=== PATIENT | female | born 1950 | race Caucasian/White ===

== ENCOUNTER 2019-03-23 15:24 | Inpatient (IN) | payer MEDICARE, BC ==
[~2019-03-23] VITALS: Ht 160 cm; Wt 53.5 kg
[~2019-03-23 15:24] MED LIST: CRESTOR PO; HYDR-3326 PO; LUNESTA PO; MEGE400O PO; PANT40TA2 PO; QUET25TA3 PO
[2019-03-23] MEDS ORDERED: MODA100T14 PO (15:54)
[2019-03-23] MEDS ORDERED: BUPR150T5 PO (15:54)
[2019-03-23] MEDS ORDERED: VITAMIN D3 (15:54)
[2019-03-23] MEDS ORDERED: DONE10TA44 PO (15:54)
[2019-03-23] MEDS ORDERED: BELSOMRA PO (15:54)
[2019-03-23] MEDS ORDERED: BUSPAR (15:54)
[2019-03-23] MEDS ORDERED: ROSU20TA2 PO (15:54)
[2019-03-23] MEDS ORDERED: LORA-259 PO (15:54)
[2019-03-23] MEDS ORDERED: LEVO50TA PO (15:54)
[2019-03-23 16:25] LABS: BASOPHILS # (AUTO) 0.1 K/uL (0.0-8.0); BASOPHILS % (AUTO) 0.6 % (0.0-2.0); EOSINOPHILS # (AUTO) 0.1 K/uL (0.0-0.7); EOSINOPHILS % (AUTO) 1.1 % (0.0-7.0); HEMATOCRIT 37.5 % (31.2-41.9); HEMOGLOBIN 12.5 g/dL (10.9-14.3); LYMPHOCYTES # (AUTO) 1.8 K/uL (20.0-40.0); LYMPHOCYTES % (AUTO) 17.8 % (20.5-51.5); MEAN CORPUSCULAR HEMOGLOBIN 29.7 uug (24.7-32.8); MEAN CORPUSCULAR HGB CONC 33 g/dL (32.3-35.6); MEAN CORPUSCULAR VOLUME 88.9 fL (75.5-95.3); MONOCYTES # (AUTO) 0.7 K/uL (2.0-10.0); MONOCYTES % (AUTO) 6.3 % (0.0-11.0); NEUTROPHILS # (AUTO) 7.7 K/uL (1.8-8.9); NEUTROPHILS % (AUTO) 74.2 % (38.5-71.5); PLATELET COUNT (AUTO) 329 K/uL (179-408); RED BLOOD CELL COUNT(AUTO) 4.22 MIL/uL (3.63-4.92); WHITE BLOOD COUNT (AUTO) 10.4 K/uL (3.8-11.8)
[2019-03-23 16:35] LABS: CREATININE 0.9 mg/dL (0.6-1.3); POTASSIUM 3.6 mmol/L (3.5-5.1)
[2019-03-23 16:48] LABS: BILIRUBIN,DIRECT 0.1 mg/dL (0.0-0.2); BILIRUBIN,TOTAL 0.3 mg/dL (0.2-1.0); TOTAL PROTEIN, SERUM 6.9 g/dL (6.4-8.2)
[2019-03-23 18:56] VITALS: BP 142/89
[2019-03-23] MEDS ORDERED: LORAZEPAM 1 MG TABLET PO SCH (19:30)
[2019-03-23 20:16] VITALS: BP 128/40
[2019-03-23] MEDS ORDERED: MISCELLANEOUS MED XX PRN (22:30)
[2019-03-24 00:18] VITALS: BP 102/43
[2019-03-24 05:15] VITALS: BP 104/46
[2019-03-24] MEDS ORDERED: DONEPEZIL 10 MG TABLET PO SCH (09:00)
[2019-03-24] MEDS ORDERED: busPIRone 10 MG TABLET PO SCH (09:00)
[2019-03-24] MEDS ORDERED: buPROPion XL 150 MG TAB.SR.24H PO SCH (09:00)
[2019-03-24] MEDS ORDERED: buPROPion SR 150 MG TABLET.SA PO SCH (09:00)
[2019-03-24] MEDS ORDERED: LEVOTHYROXINE SODIUM 50 MCG TABLET PO SCH (09:00)
[2019-03-24 11:01] VITALS: BP 127/50
[2019-03-24] MEDS ORDERED: ACETAMINOPHEN 325 MG TABLET PO PRN (11:45)
[2019-03-24] MEDS ORDERED: MORPHINE SULFATE 2 MG/1 ML DISP.SYRIN IV PRN (11:45)
[2019-03-24] MEDS ORDERED: LORAZEPAM 1 MG TABLET PO PRN (12:06)
[2019-03-24 12:08] LABS: BASOPHILS % (AUTO) 0.4 % (0.0-2.0); EOSINOPHILS # (AUTO) 0.1 K/uL (0.0-0.7); EOSINOPHILS % (AUTO) 1.2 % (0.0-7.0); HEMATOCRIT 33.8 % (31.2-41.9); HEMOGLOBIN 11.4 g/dL (10.9-14.3); LYMPHOCYTES # (AUTO) 1.3 K/uL (20.0-40.0); LYMPHOCYTES % (AUTO) 14.7 % (20.5-51.5); MEAN CORPUSCULAR HEMOGLOBIN 30.1 uug (24.7-32.8); MEAN CORPUSCULAR HGB CONC 34 g/dL (32.3-35.6); MEAN CORPUSCULAR VOLUME 89.1 fL (75.5-95.3); MONOCYTES # (AUTO) 0.6 K/uL (2.0-10.0); MONOCYTES % (AUTO) 7.2 % (0.0-11.0); NEUTROPHILS # (AUTO) 6.5 K/uL (1.8-8.9); NEUTROPHILS % (AUTO) 76.5 % (38.5-71.5); PLATELET COUNT (AUTO) 279 K/uL (179-408); WHITE BLOOD COUNT (AUTO) 8.5 K/uL (3.8-11.8)
[2019-03-24 12:17] LABS: BILIRUBIN,TOTAL 0.3 mg/dL (0.2-1.0); PHOSPHOROUS 3.7 mg/dL (2.5-4.9); POTASSIUM 3.6 mmol/L (3.5-5.1)
[2019-03-24] MEDS ORDERED: DOCUSATE SODIUM 100 MG CAPSULE PO SCH (21:00)
[2019-03-25] MEDS ORDERED: PANTOPRAZOLE SODIUM 40 MG TABLET.DR PO SCH (07:00)
== END 2019-03-24 15:00 | disposition home or self-care (01) | DRG 880 ==
LOC: ER 15:27 → TELE3 18:06 → MEDSURG3 03-24 12:18
PROVIDERS: ADMIT Internal Medicine; ATTEND Internal Medicine
DX: F41.9 Anxiety disorder, unspecified (principal); G47.00 Insomnia, unspecified; K58.9 Irritable bowel syndrome, unspecified; M50.30 Other cervical disc degeneration, unspecified cervical region; Z79.890 Hormone replacement therapy; E78.5 Hyperlipidemia, unspecified; Z86.011 Personal history of benign neoplasm of the brain; Z90.49 Acquired absence of other specified parts of digestive tract; Z88.2 Allergy status to sulfonamides; Z79.899 Other long term (current) drug therapy; Z98.1 Arthrodesis status
CPT/HCPCS: 36415; 70030-TC; 71046; 83735; 84100; 85025; 85730; 93005; 93307; A4663; G0378

== ENCOUNTER 2020-06-23 17:16 | Emergency (ER) | payer BC, MEDICARE ==
[~2020-06-23 17:16] MED LIST changes: +BELSOMRA PO; +BUPR150T5 PO; +BUSPAR; +DONE10TA44 PO; -HYDR-3326 PO; +LEVO50TA PO; +LORA-259 PO; -LUNESTA PO; -MEGE400O PO; +MODA100T14 PO; -PANT40TA2 PO; -QUET25TA3 PO; +ROSU20TA2 PO; +VITAMIN D3
--- NOTE | 2020-06-23 17:38 | NUR ---
PATIENT LEFT WITHOUT BEING SEEN BY ERMD OR TRIAGED.
== END 2020-06-23 17:39 | disposition left against medical advice (07) ==
LOC: ER 17:18
DX: Z75.3 Unavailability and inaccessibility of health-care facilities (principal)

== ENCOUNTER 2021-03-02 13:07 | Emergency (ER) | payer MEDICARE, BC ==
[~2021-03-02] VITALS: Ht 167.6 cm; Wt 65.8 kg
--- NOTE | 2021-03-02 13:22 | NUR ---
Dr Alston at the bedside for MSE.
[2021-03-02] MEDS ORDERED: ONDANSETRON ODT 4 MG TAB.RAPDIS SL ONE (13:30)
--- NOTE | 2021-03-02 13:34 | NUR ---
Pt out of ER for CT.
[2021-03-02] MEDS ORDERED: ONDANSETRON ODT 4 MG TAB.RAPDIS ONE (13:35)
--- NOTE | 2021-03-02 13:44 | NUR ---
Pt back from CT, states nausea is better.
--- NOTE | 2021-03-02 14:05 | NUR ---
Pt able to tolorate fluids, no c/o nausea at this time.
[2021-03-02] MEDS ORDERED: HYDROMORPHONE 1 MG/1 ML DISP.SYRIN IM ONE (14:15)
[2021-03-02] MEDS ORDERED: HYDROMORPHONE 1 MG/1 ML DISP.SYRIN ONE (14:22)
--- NOTE | 2021-03-02 14:22 | NUR ---
Pt c/o nausea after Dilaudid shot, Dr Alston made aware, order received.
[2021-03-02] MEDS ORDERED: ONDANSETRON 4 MG/2 ML VIAL ONE (14:26)
[2021-03-02] MEDS ORDERED: ONDANSETRON 4 MG/2 ML VIAL IM ONE (14:30)
[2021-03-02 14:57] LABS: HEMATOCRIT 35.2 % (31.2-41.9); MEAN CORPUSCULAR HEMOGLOBIN 29.1 uug (24.7-32.8); MEAN CORPUSCULAR VOLUME 88.6 fL (75.5-95.3); PLATELET COUNT (AUTO) 387 K/uL (179-408)
[2021-03-02 15:02] LABS: CREATININE 0.9 mg/dL (0.6-1.3); POTASSIUM 3.8 mmol/L (3.5-5.1)
[2021-03-02 15:08] LABS: BILIRUBIN,DIRECT 0.1 mg/dL (0.0-0.2); BILIRUBIN,TOTAL 0.5 mg/dL (0.2-1.0); TOTAL PROTEIN, SERUM 6.9 g/dL (6.4-8.2)
[2021-03-02] MEDS ORDERED: HYDROCODONE/APAP 10-325 MG TABLET PO ONE (15:15)
[2021-03-02] MEDS ORDERED: HYDROCODONE/APAP 10-325 MG TABLET ONE (15:23)
[2021-03-02 16:07] LABS: *BILIRUBIN,URIN NEGATIVE (NEGATIVE); *BLOOD, URINE NEGATIVE (NEGATIVE); *CLARITY,URINE CLEAR (CLEAR); *COLOR,URINE YELLOW (YELLOW); *KETONES,URINE 1+ (NEGATIVE); *UROBILINOGEN,URINE 0.2 E.U./dl (NORMAL); NITRITE, URINE NEGATIVE (NEGATIVE); PH,URINE 8.5 (5.0-8.0); UGLUCOSE NEGATIVE (NEGATIVE)
[2021-03-02 16:08] LABS: LEUKOCYTE ESTERASE ,URINE TRACE (NEGATIVE)
[2021-03-02] MEDS ORDERED: CEphaleXIN 500 MG CAPSULE PO ONE (16:30)
[2021-03-02] MEDS ORDERED: CEphaleXIN 500 MG CAPSULE ONE (16:33)
[2021-03-02 16:42] VITALS: BP 121/67
--- NOTE | 2021-03-02 16:42 | NUR ---
Patient discharged to home in stable condition. Written and verbal after care instructions given. Patient verbalizes understanding of instructions. Stressed follow up or return to ER for worsening s/s.
== END 2021-03-02 16:43 | disposition home or self-care (01) ==
LOC: ER 13:07
DX: M54.5 Low back pain (principal); G89.29 Other chronic pain; R10.9 Unspecified abdominal pain; R11.2 Nausea with vomiting, unspecified; N39.0 Urinary tract infection, site not specified; K58.9 Irritable bowel syndrome, unspecified; Z86.011 Personal history of benign neoplasm of the brain; Z88.2 Allergy status to sulfonamides; K44.9 Diaphragmatic hernia without obstruction or gangrene; Z91.81 History of falling
CPT/HCPCS: 36415; 74176; 80048; 80076; 81003; 83690; 85025; 96372 ×2; 99284; J1170; J2405; A4663; Q0162